=== PATIENT | male | born 1960 | race Caucasian/White ===

== ENCOUNTER → 2017-05-04 | Outpatient (CLI) | payer BC ==
[~2017-05-04] MED LIST: ADVAIR 250/501 DISK IH; ATIVAN0.5 MG PO; CIALIS5 MG PO; COLACE100 MG PO; DESYREL100 MG PO; ENDOCET 5-3251 EACH PO; GOLYTELY SOLU4000 ML PO; IRON325 M1 PO; LITHIUM CARBON450 MG PO; LOTENSIN20 MG PO; LOVENOX40 MG/0.4 SC; MOBIC7.5 MG PO; PRAVACHOL40 MG PO; RAPAFLO8 MG PO; SINGULAIR10 MG PO; SULFAZINE EC500 MG PO; SYNTHROID75 MCG PO; VENTOLIN HFA18 GM IH; VIIBRYD40 MG PO; VOLTAREN 1% GE100 GM TP; WELLBUTRIN XL300 MG PO
== END | disposition home or self-care (01) ==
LOC: NUC 09:59
PROC: CP1Z1ZZ Planar Nuclear Medicine Imaging of Musculoskeletal System, All using Technetium 99m (Tc-99m) (ICD-10-PCS; principal; 2017-05-04)
DX: R93.7 Abnormal findings on diagnostic imaging of other parts of musculoskeletal system (principal); M41.86 Other forms of scoliosis, lumbar region; M47.893 Other spondylosis, cervicothoracic region; M47.896 Other spondylosis, lumbar region; Z96.652 Presence of left artificial knee joint
CPT/HCPCS: 78315; A9503